=== PATIENT | female | born 1975 | race Asian ===

== ENCOUNTER → 2017-10-22 | Outpatient (CLI) | payer BC ==
--- NOTE | 2017-10-23 13:34 | RADIOLOGY REPORT (SQ) ---
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 RADIONUCLIDE AND DOSE: 294 microcuries I-123. The route of agent administration: Oral and Intravenous ADDITIONAL DRUGS AND DOSES: None. TECHNIQUE: Iodine uptake was measured at 4 and 24 hours. Images of the neck were acquired. LIMITATIONS: None. FINDINGS: 4 HOUR UPTAKE RADIO-IODINE: 16.2%. Normal Range of 5-15% [facility] 24 HOUR UPTAKE RADIO-IODINE: 28.5%. Normal Range of 15-30% [facility] SCAN: Thyroid gland appears very heterogeneous on I 123 imaging, majority of the gland is cold. A re lative warm area is present in the left upper pole thyroid, question hyperfunctioning nodule in the l eft upper pole. Correlation with thyroid ultrasound recommended. OTHER: No other significant finding. IMPRESSION: Elevated 4 hour uptake, borderline elevated 24 hour uptake of radio iodine Heterogeneous gland on radioiodine imaging with warm area in the left upper pole gland could represen t functioning at adenoma. Correlation with ultrasound recommended. TECHNICAL DOCUMENTATION: JOB ID: [id number] [employer]- All Rights Reserved Reading location - IP/workstation name: [email or web address]
== END ==
LOC: RAD 09:19
PROVIDERS: ATTEND Nurse Practitioner Family
DX: E05.90 Thyrotoxicosis, unspecified without thyrotoxic crisis or storm (principal)
CPT/HCPCS: 78012; A9516

== ENCOUNTER → 2017-11-05 | Outpatient (CLI) | payer BC ==
--- NOTE | 2017-11-05 16:33 | RADIOLOGY REPORT (SQ) ---
EXAM DESCRIPTION: U/S THYROID/SFT TISS HD NECK COMPLETED DATE/TIME: 11/05/2017 2:24 pm REASON FOR STUDY: THYROID NODULE (E04.1) E04.1 NONTOXIC SINGLE THYROID NODULE COMPARISON: Thyroid scan and uptake 10/24/2017 TECHNIQUE: Dynamic and static hubbard-scale images acquired of the thyroid gland. Selected additional c olor/power Doppler images recorded. All images stored to PACS. LIMITATIONS: None. FINDINGS: RIGHT LOBE: Normal size, 3.6 x 2 x 1 cm in size. Homogeneous echotexture. Benign less th an 5 mm colloid cysts are present. LEFT LOBE: Normal size, 3.6 x 2.1 x 1 cm in size. Homogeneous echotexture. 8 x 4 mm nodule in the l eft upper pole thyroid. ISTHMUS: Normal size. Homogeneous echotexture. No cystic or solid masses. OTHER: No other significant finding. IMPRESSION: Hyperfunctioning area in the left lobe thyroid identified on 10/22/2017 correlates with a vague 8 x 4 mm nodule in the upper pole left lobe thyroid at ultrasound. Fine-needle aspirate may prove useful for further evaluation. TECHNICAL DOCUMENTATION: JOB ID: [id number] [employer]- All Rights Reserved Reading location - IP/workstation name: [email or web address]
== END ==
LOC: RAD 13:19
PROVIDERS: ATTEND Nurse Practitioner Family
DX: E04.1 Nontoxic single thyroid nodule (principal)
CPT/HCPCS: 76536